=== PATIENT | male | born 1950 | race Two or more races ===

== ENCOUNTER 2023-04-23 16:04 | Emergency (ER) | payer MEDICAID ==
[~2023-04-23] VITALS: Ht 160 cm; Wt 63.0 kg
[~2023-04-23 16:04] MED LIST: AML5T PO; ASPI-325 PO; ATOR20TA50 PO; LISI20TA56 PO; MAGN400T40 PO; METO-6 PO; SERT50TA PO
[2023-04-23 16:42] LABS: Basophils # (auto) 0 10 ^3/uL (0-0.2); Basophils % (auto) 0.4 % (0.0-2.0); Eosinophils # (auto) 0.1 10 ^3/uL (0-0.8); Eosinophils % (auto) 1.1 % (0.0-7.0); Hematocrit 47.8 % (41.0-53.0); Hemoglobin 16.8 g/dL (13.5-17.5); Lymphocytes # (auto) 0.9 10 ^3/uL (0.4-5.4); Lymphocytes % (auto) 19.9 % (10.0-50.0); Mean Corpuscular Hemoglobin 33.1 pg (28.0-32.0); Mean Corpuscular Hgb Conc. 35.1 g/dL (32.0-36.0); Mean Corpuscular Volume 94.5 fL (80.0-100.0); Monocytes # (auto) 0.2 10 ^3/uL (0-1.3); Monocytes % (auto) 4.4 % (0.0-12.0); Neutrophils # (auto) 3.4 10 ^3/uL (1.6-8.6); Neutrophils % (auto) 74.2 % (37.0-80.0); Nucleated Red Blood Cells % 0.2 %; Red Blood Cells 5.06 10^6/uL (4.5-5.90); Red Cell Distribution Width 13.2 % (11.8-14.3); White Blood Cell 4.6 10^3/uL (4.4-10.8)
[2023-04-23] MEDS ORDERED: cloNIDine HCL 0.1 MG TAB PO ONE (16:45)
[2023-04-23 17:07] LABS: Albumin 4.3 g/dL (3.4-5.0); Calcium 8.7 mg/dL (8.5-10.1); Potassium 3.8 mmol/L (3.5-5.1)
[2023-04-23 17:11] LABS: Urine WBC None Seen /hpf (0 - 3)
[2023-04-23 17:12] LABS: BUN/Creatinine Ratio 11.3 (10.0-20.0); Bilirubin, Total 0.7 mg/dL (0.2-1.0); Total Protein 7.1 g/dL (6.4-8.2)
[2023-04-23 17:14] VITALS: BP 202/124
[2023-04-23 17:59] LABS: Urine Bacteria NONE SEEN /hpf (None Seen); Urine Blood Negative /uL (Negative)
[2023-04-23] MEDS ORDERED: LISINOPRIL 10 MG TAB PO ONE (19:00)
[2023-04-24] MEDS ORDERED: AMLO1TAB23 PO (16:08)
[2023-04-24] MEDS ORDERED: METO1TAB77 PO (16:08)
[2023-04-24] MEDS ORDERED: LISI20TA56 PO (16:08)
== END 2023-04-23 20:09 | disposition left against medical advice (07) ==
LOC: ER 16:04
DX: I16.1 Hypertensive emergency (principal); I10 Essential (primary) hypertension
CPT/HCPCS: 36415; 71046; 80053; 81001; 83690; 83880; 84484; 85025; 93005

== ENCOUNTER 2023-04-24 14:53 | Emergency (ER) | payer MEDICAID ==
[~2023-04-24] VITALS: Ht 162.6 cm; Wt 63.3 kg
[2023-04-24] MEDS ORDERED: cloNIDine HCL 0.1 MG TAB PO ONE (15:15)
[2023-04-24] MEDS ORDERED: AMLO1TAB23 PO (16:08)
[2023-04-24] MEDS ORDERED: LISI20TA56 PO (16:08)
[2023-04-24] MEDS ORDERED: METO1TAB77 PO (16:08)
[2023-04-24 16:30] VITALS: BP 162/100
== END 2023-04-24 16:35 | disposition home or self-care (01) ==
LOC: ER 14:53
DX: I10 Essential (primary) hypertension (principal); Z88.6 Allergy status to analgesic agent